=== PATIENT | female | born 1945 | race Two or more races ===

== ENCOUNTER 2024-09-17 08:43 | Inpatient (IN) | payer MEDICARE, MEDICAID ==
[2024-09-14 14:47] LABS: Basophils # (auto) 0.1 10 ^3/uL (0-0.2); Basophils % (auto) 1.1 % (0.0-2.0); Eosinophils # (auto) 0.1 10 ^3/uL (0-0.8); Eosinophils % (auto) 1.2 % (0.0-7.0); Hematocrit 38.8 % (36.0-46.0); Lymphocytes # (auto) 1.9 10 ^3/uL (0.4-5.4); Lymphocytes % (auto) 38.9 % (10.0-50.0); Mean Corpuscular Hemoglobin 29.2 pg (28.0-32.0); Mean Corpuscular Hgb Conc. 33.4 g/dL (32.0-36.0); Mean Corpuscular Volume 87.2 fL (80.0-100.0); Monocytes # (auto) 0.3 10 ^3/uL (0-1.3); Monocytes % (auto) 6.8 % (0.0-12.0); Neutrophils # (auto) 2.5 10 ^3/uL (1.6-8.6); Platelet Count (auto) 266 10^3/uL (140-450); Red Blood Cells 4.44 10^6/uL (4.0-5.20); Red Cell Distribution Width 13.9 % (11.8-14.3); White Blood Cell 4.9 10^3/uL (4.4-10.8)
[2024-09-14 15:09] LABS: Alkaline Phosphatase 53 U/L (46-116); Anion Gap 7 (5-15); BUN/Creatinine Ratio 9.4 (10.0-20.0); Bilirubin, Total 0.5 mg/dL (0.2-1.0); Carbon Dioxide 28 mmol/L (20-31); Chloride 105 mmol/L (98-107); Glucose 79 mg/dL (74-106); Potassium 3.8 mmol/L (3.5-5.1); Sodium 140 mmol/L (136-145)
[2024-09-14 15:11] LABS: Alanine Aminotransferase 9 U/L (7-40); Aspartate Aminotransferase 13 U/L (13-40); Blood Urea Nitrogen 9 mg/dL (9-23); Calcium 10.7 mg/dL (8.7-10.4)
[2024-09-14 15:16] LABS: INR 1.08 (0.9-1.15); Partial Thromboplastin Time 29.1 SEC (24.5-34.5); Prothrombin Time 11.4 sec (9.3-11.8)
[2024-09-15 12:04] LABS: Urine Bacteria None Seen /hpf (None Seen)
[2024-09-15 12:12] LABS: Urine Blood Negative /uL (Negative); Urine Clarity Clear (Clear); Urine Color Light-Yellow (Yellow); Urine Protein, UAD Negative (Negative); Urine Specific Gravity 1.009 (1.001-1.035); Urine Squamous Epithelial Cell FEW /hpf (<5); Urine Urobilinogen Normal (Negative); Urine WBC < 1 /HPF (0-5)
[2024-09-17] VITALS (8 sets, daily range): BP systolic 116–134; BP diastolic 56–73; PULSE 71–92; RESP 6–20; TEMP 97.3–97.9; O2SAT 92–100
[~2024-09-17] VITALS: Ht 162.6 cm; Wt 78.0 kg
[~2024-09-17 08:43] MED LIST: ALBUAER3 IN; AMLO1TAB23 PO; CHOL20004 PO; MIRA25TA OR
[2024-09-17] MEDS ORDERED: KETAMINE 50mg/ML 1ml syringe ONE (10:02)
[2024-09-17] MEDS ORDERED: KETOROLAC TROMETH 30 MG/ML 1ML VIAL ONE (10:03)
[2024-09-17] MEDS ORDERED: HYDROmorphone HCL 2 MG/ML VL/or syr ONE (10:03)
[2024-09-17] MEDS ORDERED: fentaNYL CITRATE 100 MCG/2 ML VL ONE (10:03)
[2024-09-17] MEDS ORDERED: GLYCOPYRROLATE 0.2 MG/ML 1ML VIAL ONE (10:03)
[2024-09-17] MEDS ORDERED: MIDAZOLAM HCL 2MG/2ML 2ml VIAL (1mg/ml) ONE (10:03)
[2024-09-17] MEDS ORDERED: LIDOCAINE HCL 100 MG/5ML (2%) SYRG INJ IV ONE (10:03)
[2024-09-17] MEDS ORDERED: PROPOFOL 10 MG/ML 20 ML IV ONE (10:03)
[2024-09-17] MEDS ORDERED: fentaNYL CITRATE 5 ML ONE (10:03)
[2024-09-17] MEDS ORDERED: ONDANSETRON HCL 4 MG/2 ML VIAL ONE (10:03)
[2024-09-17] MEDS ORDERED: ePHEDrine SULFATE 50 MG/ML AMP ONE (10:03)
--- NOTE | 2024-09-17 10:59 | DVHHP2 ---
Admitting Diagnosis: lumbar spinal stenosis with neurogenic claudication History of Present Illness Home Meds Reported Medications Cholecalciferol (D3) 50 Mcg Cap, PO DAILY, CAP 09/14/24 [employer] (MYRBETRIQ) 25 Mg Tab, 25 MG OR DAILY, TAB 09/14/24 Amlodipine Besylate (Amlodipine Besylate) 10 Mg Tab, PO DAILY, TAB 09/14/24 Albuterol Sulfate (VENTOLIN MDI) 90 Mcg Ih, 90 MCG IN, INH 09/14/24 Review of Systems Constitutional: No symptom reported Ears, Nose, & Throat: No symptom reported Eyes: No symptom reported Pulmonary/Respiratory: No symptom reported Cardiovascular: No symptom reported Gastrointestinal: No symptom reported Genitourinary: No symptom reported Musculoskeletal: Back pain Skin: No symptom reported Psychiatric: No symptom reported Endocrine: No symptom reported Hemotologic/Lymphatic: No symptom reported H&P Exam Vital Signs Vital Signs Date Time Temp Pulse Resp B/P (MAP) Pulse Ox O2 Delivery O2 Flow Rate FiO2 09/17/24 08:53 97.3 92 18 134/73 (93) 96 97.3 General Appeara: Well developed, Well nourished, Normal Appearance Head Exam: Normal inspection Neck Exam: Normal inspection, Non-tender, Normal alignment Eye Exam: bilateral eye Normal inspection, bilateral eye PERRL, bilateral eye EOMI Nasal Exam: Normal inspection Mouth: Normal Inspection Pulmonary/Respiratory: Normal inspection, Normal breath sounds, Chest non- tender, Lungs clear Cardiovascular/Chest: Normal inspection, Regular rate, Normal Rhythm Abdominal Exam: Normal bowel sounds, Soft, No tenderness, No hepatospenomegaly, No masses Rectal Exam: Deferred Back Exam: Muscle spasm, Vertebral tenderness Pelvic Exam: Not done Male Genital Exam: Not done Shoulder Exam: Normal inspection, Non-tender, Normal ROM Elbow/Forearm Exam: Normal inspection, Non-tender, Normal ROM Wrist Exam: Normal inspection, Non-tender, Normal ROM Hand Exam: Normal inspection, Non-tender, Normal ROM Hip exam: Normal inspection, Non-tender, Normal range of motion Legs: bilateral leg limited range of motion Knees: right knee soft tissue tenderness Ankle Exam: bilateral ankle Normal inspection, bilateral ankle Non-tender, bilateral ankle Normal range of motion, bilateral ankle No evidence of injury Foot: bilateral foot non-tender, bilateral foot normal inspection, bilateral foot normal range of motion, bilateral foot no evidence of injury Tendon/ Neuro: Motor deficit, Sensory deficit ONLINE ACTIVIST Exam: Normal hearing, Normal speech, PERRL Motor/Sensory: Weak motor strength RLE, Weak motor strength LLE Deep Tendon Ref: All intact Neuro/Mental St: Alert Appearance: Appropriate appearance Eye contact/ Speech: Cooperative, Good eye contact, Normal speech Thoughts/Psych: Normal thought pattern Coordination/Gait: Abnormal gait Skin Exam: Normal inspection, Normal color, Warm/dry Lymphatic: Normal inspection Labs/Xrays Labs Test 09/15/24 12:02 09/14/24 14:30 Range/Units Urine Color Light-yellow Yellow Urine Clarity Clear Clear Urine pH 6.0 5.0-9.0 Urine Specific [place] 1.009 1.001-1.035 Urine Protein Negative Negative Urine Ketones Negative Negative Urine Blood Negative Negative /uL Urine Nitrite Negative Negative Urine Bilirubin Negative Negative Urine Urobilinogen Normal Negative mg/dL Urine Leukocyte Esterase Negative Negative /uL Urine RBC 1 0 - 4 /hpf Urine Microscopic WBC < 1 0-5 /HPF Urine Squamous Epithelial Cells Few <5 /hpf Urine Bacteria None seen None Seen /hpf Urine Glucose Normal Normal mg/dL White Blood Count 4.9 4.4-10.8 10^3/uL Red Blood Count 4.44 4.0-5.20 10^6/uL Hemoglobin 13.0 12.2-16.2 g/dL Hematocrit 38.8 36.0-46.0 % Mean Corpuscular Volume 87.2 80.0-100.0 fL Mean Corpuscular Hemoglobin 29.2 28.0-32.0 pg Mean Corpuscular Hemoglobin Concent 33.4 32.0-36.0 g/dL Red Cell Distribution Width 13.9 11.8-14.3 % Platelet Count 266 140-450 10^3/uL Mean Platelet Volume 8.3 6.9-10.8 fL Neutrophils (%) (Auto) 52.0 37.0-80.0 % Lymphocytes (%) (Auto) 38.9 10.0-50.0 % Monocytes (%) (Auto) 6.8 0.0-12.0 % Eosinophils (%) (Auto) 1.2 0.0-7.0 % Basophils (%) (Auto) 1.1 0.0-2.0 % Neutrophils # (Auto) 2.5 1.6-8.6 10 ^3/uL Lymphocytes # (Auto) 1.9 0.4-5.4 10 ^3/uL Monocytes # (Auto) 0.3 0-1.3 10 ^3/uL Eosinophils # (Auto) 0.1 0-0.8 10 ^3/uL Basophils # (Auto) 0.1 0-0.2 10 ^3/uL Nucleated Red Blood Cells 0.0 % Prothrombin Time 11.4 9.3-11.8 sec Prothrombin Time INR 1.08 0.9-1.15 Activated Partial Thromboplast Time 29.1 24.5-34.5 SEC Sodium Level 140 136-145 mmol/L Potassium Level 3.8 3.5-5.1 mmol/L Chloride Level 105 98-107 mmol/L Carbon Dioxide Level 28 20-31 mmol/L Anion Gap 7 5-15 Blood Urea Nitrogen 9 9-23 mg/dL Creatinine 0.96 0.550-1.02 mg/dL Glomerular Filtration Rate Calc 60 >90 mL/min BUN/Creatinine Ratio 9.4 L 10.0-20.0 Serum Glucose 79 74-106 mg/dL Calcium Level 10.7 H 8.7-10.4 mg/dL Total Bilirubin 0.5 0.2-1.0 mg/dL Aspartate Amino Transferase (AST) 13 13-40 U/L Alanine Aminotransferase (ALT) 9 7-40 U/L Alkaline Phosphatase 53 46-116 U/L Total Protein 8.0 5.7-8.2 g/dL Albumin 5.0 H 3.2-4.8 g/dL Assessment/Plan Primary Diagnosis lumbar spinal stenosis with severe neurogenic claudication Plan admit for elective lumbar spine surgery Plan discussed with: Patient ROSALBA RIOS MD Sep 17, 2024 10:59
[2024-09-17] MEDS ORDERED: HYDROmorphone HCL 2 MG/ML VL/or syr IV PRN ×2 (12:00→15:00)
[2024-09-17] MEDS ORDERED: MORPHINE SULFATE INJ 2 MG/ml SYRG IV PRN ×2 (12:45)
[2024-09-17] MEDS ORDERED: ACETAMINOPHEN 325 MG TAB PO PRN (12:45)
[2024-09-17] MEDS ORDERED: ONDANSETRON HCL 4 MG/2 ML VIAL IV PRN (12:45)
[2024-09-17] MEDS ORDERED: NITROGLYCERIN 0.4 MG SL TAB SL PRN (12:45)
[2024-09-17] MEDS: CIPROFLOXACIN 400MG/200ML 200 ML IV ONE (12:52)
[2024-09-17] MEDS: ceFAZolin 2 GM/D5W100ml 100 ML IV ONE (12:52)
[2024-09-17] MEDS: TRANEXAMIC ACID 20 ML ONE (12:53)
[2024-09-17] MEDS: levoFLOXacin 500MG 200 ML IV ONE (12:53)
[2024-09-17] MEDS ORDERED: SUGAMMADEX 200mg/2ml Vial (100MG/ML) IV ONE (13:20)
[2024-09-17] MEDS ORDERED: HYDR-4798 (13:43)
[2024-09-17] MEDS ORDERED: BACL10TA PO (13:43)
[2024-09-17] MEDS ORDERED: ALBU108A5 INH (13:43)
[2024-09-17] MEDS ORDERED: ceFAZolin 1GM/50ML 50 ML IV SCH ×2 (14:00→22:00)
[2024-09-17] MEDS: THROMBIN (BOVINE) 5000 UNIT SOL VIAL ONE (14:10)
[2024-09-17] MEDS ORDERED: hydrALAZINE HCL 20 MG/ML VL IV PRN (15:00)
[2024-09-17] MEDS ORDERED: NALOXONE HCL 0.4 MG/ML VIAL IV PRN (15:00)
[2024-09-17] MEDS ORDERED: ePHEDrine SULFATE 50 MG/ML AMP IV PRN (15:00)
[2024-09-17] MEDS ORDERED: fentaNYL CITRATE 100 MCG/2 ML VL IV PRN (15:00)
--- NOTE | 2024-09-17 15:19 | DVH ---
XY C ARM FLUOROSCOPY UP TO 60MIN, HISTORY: L3-5 SPINAL DECOMPRESSION AND FUSION TECHNICAL DATA: 4 intraoperative fluoroscopic spot images were obtained . COMPARISON: None FINDINGS/IMPRESSION: C-arm fluoroscopic images were obtained for anatomic localization. The images are of low resolution b ut demonstrate instrumentation over the spine . Total fluoroscopy time was 51 seconds. 23 DAP Please see the operative report for further details.
[2024-09-17] MEDS: ONDANSETRON HCL 4 MG/2 ML VIAL IV ONE ×2 (16:14)
[2024-09-17] MEDS: FLUMAZENIL 0.1 MG/ML INJ 10ML MDV IV ONE (16:14)
[2024-09-17] MEDS: D5W/SOD CHLO 0.9% 1,000 ML IV SCH (16:30)
[2024-09-17] MEDS: CYCLOBENZAPRINE HCL 10 MG TAB PO SCH (17:38)
[2024-09-17] MEDS: ALBUTEROL SULF 2.5 MG/0.5ML(0.5%) NEB SOLN NEB SCH (18:40)
[2024-09-17] MEDS: ceFAZolin 1GM/50ML 50 ML IV SCH (21:48)
[2024-09-17] MEDS: DOCUSATE SOD 100 MG CAP PO SCH (21:48)
[2024-09-17] MEDS ORDERED: ALBUTEROL SULF HFA 90MCG INH 200DOSE IN SCH (22:00)
[2024-09-18] VITALS (13 sets, daily range): BP systolic 105–144; BP diastolic 47–66; PULSE 68–114; RESP 15–18; TEMP 97.4–98.2; O2SAT 93–100
[2024-09-18] MEDS: SODIUM CHLORIDE 0.9% 1,000 ML IV SCH (04:00)
[2024-09-18] MEDS: ceFAZolin 1GM/50ML 50 ML IV SCH (05:19)
--- NOTE | 2024-09-18 18:01 | DVHPN2 ---
Subjective I am assuming the care of the patient from today onwards. Patient is status post L3-4 L4-5 spine surgery. Patient is currently complaining of minimal pain in the lumbar area. Reviewed: Care Plan Changes from previous H/P or p: No Changes Objective Vitals Vital Signs Date Time Temp Pulse Resp B/P (MAP) Pulse Ox O2 Delivery O2 Flow Rate FiO2 09/18/24 16:15 97.5 106 16 140/63 (88) 94 97.5 09/18/24 09:34 Nasal Cannula 2.0 09/18/24 09:34 28 Intake/Output Intake and Output 09/18/24 07:00 Intake Total 870 ml Output Total 180 ml Balance 690 ml Intake Oral 440 ml IV Total 430 ml Output Drainage Total 180 ml # Voids 1 Exam HEENT pupils are reactive Neck is supple CV is S1-S2 regular rate and rhythm Respiratory diminished breath sounds bilateral lung bases GI positive bowel sound 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 Medications Current Medications Medications Dose Ordered Sig/Mindy Route Start Time Stop Time Status Last Admin Dose Admin Ondansetron HCl 4 mg Q4HP PRN IV 09/17/24 12:45 Acetaminophen 650 mg Q6HP PRN PO 09/17/24 12:45 Acetaminophen/ Hydrocodone Bitart 1 tab Q6HP PRN PO 09/17/24 12:45 Morphine Sulfate 2 mg Q4HP PRN IV 09/17/24 12:45 Cyclobenzaprine HCl 10 mg TID PO 09/17/24 14:00 09/18/24 13:12 10 MG Docusate Sodium 100 mg BID PO 09/17/24 22:00 09/18/24 09:16 100 MG Nitroglycerin 0.4 mg Q5MINP PRN SL 09/17/24 12:45 Morphine Sulfate 2 mg Q30M PRN IV 09/17/24 12:45 Albuterol 2.5 mg BID NEB 09/17/24 22:00 09/18/24 07:07 2.5 MG Cefazolin Sodium 50 ml @ 100 mls/hr Q8H IV 09/18/24 05:00 09/19/24 13:29 09/18/24 13:12 100 MLS/HR Sodium Chloride 1,000 ml @ 75 mls/hr [id number] IV 09/18/24 04:00 09/18/24 16:06 75 MLS/HR Laboratory Results Laboratory Tests 09/14/24 14:30 Urinalysis Test 09/15/24 12:02 Urine Color Light-yellow (Yellow) Urine Clarity Clear (Clear) Urine pH 6.0 (5.0-9.0) Urine Specific [place] 1.009 (1.001-1.035) Urine Protein Negative (Negative) Urine Ketones Negative (Negative) Urine Blood Negative /uL (Negative) Urine Nitrite Negative (Negative) Urine Bilirubin Negative (Negative) Urine Urobilinogen Normal mg/dL (Negative) Urine Leukocyte Esterase Negative /uL (Negative) Urine RBC 1 /hpf (0 - 4) Urine Microscopic WBC < 1 /HPF (0-5) Urine Squamous Epithelial Cells Few /hpf (<5) Urine Bacteria None seen /hpf (None Seen) Urine Glucose Normal mg/dL (Normal) Assessment/Plan Assessment/Plan 79-year-old female with a known history of COPD, hypertension, chronic low back pain who was brought in while spine surgery for elective procedure. 1. Hypertension controlled 2. COPD currently not in exacerbation 3. Lumbar radiculopathy status post L3-4/L4-5 spine surgery -pain meds as needed, DVT GI prophylaxis -physical therapy evaluation and treatment -resume home medications. Plan discussed with: Patient Date of Service: Sep 18, 2024 Billing Provider: TREVON HONG MD Common Visit Codes: [id number] INP/OBS CARE(MOD) TREVON HONG MD Sep 18, 2024 18:00
[2024-09-19] VITALS (13 sets, daily range): BP systolic 140–165; BP diastolic 68–85; PULSE 94–142; RESP 16–20; TEMP 98–98.5; O2SAT 91–100
[2024-09-19] MEDS ORDERED: cloNIDine HCL 0.1 MG TAB PO PRN (15:00)
--- NOTE | 2024-09-19 15:43 | DVHPN2 ---
Subjective Patient is status post L3-4 L4-5 spine surgery postop day one. Patient is currently complaining of minimal pain in the lumbar area. 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 Medications Current Medications Medications Dose Ordered Sig/Mindy Route Start Time Stop Time Status Last Admin Dose Admin Ondansetron HCl 4 mg Q4HP PRN IV 09/17/24 12:45 Acetaminophen 650 mg Q6HP PRN PO 09/17/24 12:45 Acetaminophen/ Hydrocodone Bitart 1 tab Q6HP PRN PO 09/17/24 12:45 Morphine Sulfate 2 mg Q4HP PRN IV 09/17/24 12:45 Cyclobenzaprine HCl 10 mg TID PO 09/17/24 14:00 09/19/24 13:01 10 MG Docusate Sodium 100 mg BID PO 09/17/24 22:00 09/18/24 21:11 100 MG Nitroglycerin 0.4 mg Q5MINP PRN SL 09/17/24 12:45 Morphine Sulfate 2 mg Q30M PRN IV 09/17/24 12:45 Albuterol 2.5 mg BID NEB 09/17/24 22:00 09/19/24 11:13 2.5 MG Sodium Chloride 1,000 ml @ 75 mls/hr [id number] IV 09/18/24 04:00 09/18/24 16:06 75 MLS/HR Clonidine HCl 0.1 mg Q6HP PRN PO 09/19/24 15:00 Laboratory Results Laboratory Tests 09/14/24 14:30 Urinalysis Test 09/15/24 12:02 Urine Color Light-yellow (Yellow) Urine Clarity Clear (Clear) Urine pH 6.0 (5.0-9.0) Urine Specific [place] 1.009 (1.001-1.035) Urine Protein Negative (Negative) Urine Ketones Negative (Negative) Urine Blood Negative /uL (Negative) Urine Nitrite Negative (Negative) Urine Bilirubin Negative (Negative) Urine Urobilinogen Normal mg/dL (Negative) Urine Leukocyte Esterase Negative /uL (Negative) Urine RBC 1 /hpf (0 - 4) Urine Microscopic WBC < 1 /HPF (0-5) Urine Squamous Epithelial Cells Few /hpf (<5) Urine Bacteria None seen /hpf (None Seen) Urine Glucose Normal mg/dL (Normal) Assessment/Plan Assessment/Plan 79-year-old female with a known history of COPD, hypertension, chronic low back pain who was brought in while spine surgery for elective procedure. 1. Hypertension controlled 2. COPD currently not in exacerbation 3. Lumbar radiculopathy status post L3-4/L4-5 spine surgery -pain meds as needed, DVT GI prophylaxis -physical therapy evaluation and treatment -discharge plan per orthopedic spine surgery. Plan discussed with: Patient My Orders Orders - TREVON HONG MD Procedure Category Date Status Time * Customer Support Specialist CONS 09/18/24 Transmitted Consult 17:59 Regular Diet DIET 09/19/24 Transmitted Lunch Clonidine Hcl Tablet PHA 09/19/24 In Process (Catapres Tablet) 15:00 Date of Service: Sep 19, 2024 Billing Provider: TREVON HONG MD Common Visit Codes: [id number] INP/OBS CARE(MOD) TREVON HONG MD Sep 19, 2024 15:42
[2024-09-19] MEDS: HYDROcodone-ACET 10/325MG TAB PO PRN (20:18)
[2024-09-20] VITALS (14 sets, daily range): BP systolic 108–122; BP diastolic 65–72; PULSE 61–110; RESP 14–20; TEMP 97.2–98.2; O2SAT 93–100
[2024-09-20] MEDS ORDERED: SODI650T PO (14:56)
[2024-09-20] MEDS ORDERED: HYDR-4902 PO (14:56)
--- NOTE | 2024-09-20 15:36 | DVHPN2 ---
Subjective Patient is status post L3-4 L4-5 spine surgery postop day one. Patient is currently complaining of minimal pain in the lumbar area. Patient is sitting in the chair comfortably still has Hemovacs. Reviewed: Care Plan Changes from previous H/P or p: No Changes Objective Vitals Vital Signs Date Time Temp Pulse Resp B/P (MAP) Pulse Ox O2 Delivery O2 Flow Rate FiO2 09/20/24 15:00 102 18 110/69 96 2.0 28 09/20/24 13:00 97.2 97.2 09/20/24 09:38 Nasal Cannula Intake/Output Intake and Output 09/20/24 07:00 Intake Total 878 ml Output Total 110 ml Balance 768 ml Intake Oral 878 ml Output Drainage Total 110 ml # Voids 1 # Bowel Movements 3 Exam HEENT pupils are reactive Neck is supple CV is S1-S2 regular rate and rhythm Respiratory diminished breath sounds bilateral lung bases GI positive bowel sound Extremity 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 Medications Current Medications Medications Dose Ordered Sig/Mindy Route Start Time Stop Time Status Last Admin Dose Admin Ondansetron HCl 4 mg Q4HP PRN IV 09/17/24 12:45 Acetaminophen 650 mg Q6HP PRN PO 09/17/24 12:45 Acetaminophen/ Hydrocodone Bitart 1 tab Q6HP PRN PO 09/17/24 12:45 09/20/24 10:01 1 TAB Morphine Sulfate 2 mg Q4HP PRN IV 09/17/24 12:45 Cyclobenzaprine HCl 10 mg TID PO 09/17/24 14:00 09/20/24 13:41 10 MG Docusate Sodium 100 mg BID PO 09/17/24 22:00 09/20/24 10:01 100 MG Nitroglycerin 0.4 mg Q5MINP PRN SL 09/17/24 12:45 Morphine Sulfate 2 mg Q30M PRN IV 09/17/24 12:45 Albuterol 2.5 mg BID NEB 09/17/24 22:00 09/20/24 09:38 2.5 MG Clonidine HCl 0.1 mg Q6HP PRN PO 09/19/24 15:00 Laboratory Results Laboratory Tests 09/14/24 14:30 Urinalysis Test 09/15/24 12:02 Urine Color Light-yellow (Yellow) Urine Clarity Clear (Clear) Urine pH 6.0 (5.0-9.0) Urine Specific [place] 1.009 (1.001-1.035) Urine Protein Negative (Negative) Urine Ketones Negative (Negative) Urine Blood Negative /uL (Negative) Urine Nitrite Negative (Negative) Urine Bilirubin Negative (Negative) Urine Urobilinogen Normal mg/dL (Negative) Urine Leukocyte Esterase Negative /uL (Negative) Urine RBC 1 /hpf (0 - 4) Urine Microscopic WBC < 1 /HPF (0-5) Urine Squamous Epithelial Cells Few /hpf (<5) Urine Bacteria None seen /hpf (None Seen) Urine Glucose Normal mg/dL (Normal) Assessment/Plan Assessment/Plan 79-year-old female with a known history of COPD, hypertension, chronic low back pain who was brought in while spine surgery for elective procedure. 1. Hypertension controlled 2. COPD currently not in exacerbation 3. Lumbar radiculopathy status post L3-4/L4-5 spine surgery -pain meds as needed, DVT GI prophylaxis -physical therapy evaluation and treatment -discharge plan per orthopedic spine surgery. Plan discussed with: Patient, Other My Orders Orders - TREVON HONG MD Procedure Category Date Status Time Notify Provider NOTICE 09/20/24 Transmitted Malnutrition 15:24 Nutritional NOURISH 09/20/24 Transmitted Supplements 15:24 Dietary NOTICE 09/20/24 Transmitted Recommendations 15:24 Date of Service: Sep 20, 2024 Billing Provider: TREVON HONG MD Common Visit Codes: [id number] INP/OBS CARE(MOD) TREVON HONG MD Sep 20, 2024 15:36
[2024-09-21] VITALS (14 sets, daily range): BP systolic 97–169; BP diastolic 57–85; PULSE 98–116; RESP 17–22; TEMP 97.4–98; O2SAT 91–100
--- NOTE | 2024-09-21 09:56 | DVHPN2 ---
Subjective The patient is seen and examined at bedside. No complaint today except being tired. Reviewed: Care Plan Changes from previous H/P or p: No Changes Objective Vitals Vital Signs Date Time Temp Pulse Resp B/P (MAP) Pulse Ox O2 Delivery O2 Flow Rate FiO2 09/21/24 08:39 97.5 99 18 118/72 (87) 93 97.5 09/20/24 23:04 Nasal Cannula* 3 32 Intake/Output Intake and Output 09/21/24 07:00 Intake Total 1176 ml Output Total 60 ml Balance 1116 ml Intake Oral 1176 ml Output Gastric Drainage Total 60 ml # Voids 4 General Appearance: Alert, Oriented X3, Cooperative, No acute distress HEENT: Atraumatic, PERRLA, EOMI Neck: Supple Lungs: Clear to auscultation, Normal air movement Cardiovascular: Regular rate, Normal S1, Normal S2, No murmurs, Gallops, Rubs Abdomen: Normal bowel sounds, Soft, No tenderness Neuro: Cranial nerves 3-12 NL Psych/Mental Status: Mental status NL Medications Current Medications Medications Dose Ordered Sig/Mindy Route Start Time Stop Time Status Last Admin Dose Admin Ondansetron HCl 4 mg Q4HP PRN IV 09/17/24 12:45 Acetaminophen 650 mg Q6HP PRN PO 09/17/24 12:45 Acetaminophen/ Hydrocodone Bitart 1 tab Q6HP PRN PO 09/17/24 12:45 09/20/24 10:01 1 TAB Morphine Sulfate 2 mg Q4HP PRN IV 09/17/24 12:45 Cyclobenzaprine HCl 10 mg TID PO 09/17/24 14:00 09/21/24 05:47 10 MG Docusate Sodium 100 mg BID PO 09/17/24 22:00 09/21/24 09:13 100 MG Nitroglycerin 0.4 mg Q5MINP PRN SL 09/17/24 12:45 Morphine Sulfate 2 mg Q30M PRN IV 09/17/24 12:45 Albuterol 2.5 mg BID NEB 09/17/24 22:00 09/21/24 08:50 2.5 MG Clonidine HCl 0.1 mg Q6HP PRN PO 09/19/24 15:00 Laboratory Results Laboratory Tests 09/14/24 14:30 Urinalysis Test 09/15/24 12:02 Urine Color Light-yellow (Yellow) Urine Clarity Clear (Clear) Urine pH 6.0 (5.0-9.0) Urine Specific [place] 1.009 (1.001-1.035) Urine Protein Negative (Negative) Urine Ketones Negative (Negative) Urine Blood Negative /uL (Negative) Urine Nitrite Negative (Negative) Urine Bilirubin Negative (Negative) Urine Urobilinogen Normal mg/dL (Negative) Urine Leukocyte Esterase Negative /uL (Negative) Urine RBC 1 /hpf (0 - 4) Urine Microscopic WBC < 1 /HPF (0-5) Urine Squamous Epithelial Cells Few /hpf (<5) Urine Bacteria None seen /hpf (None Seen) Urine Glucose Normal mg/dL (Normal) Labs and/or images reviewed: Labs reviewed by me Assessment/Plan Assessment/Plan 79-year-old female with a known history of COPD, hypertension, chronic low back pain who was brought in while spine surgery for elective procedure. 1. Hypertension controlled 2. COPD currently not in exacerbation 3. Lumbar radiculopathy status post L3-4/L4-5 spine surgery -pain meds as needed, DVT GI prophylaxis -physical therapy evaluation and treatment -discharge plan per orthopedic spine surgery. This medical document was created using an electronic medical record system with [employer] direct computerized dictation system. Although this document has been carefully reviewed, there may still be some phonetic and typographical errors. These areas are purely typographical due to imperfections of the software programs, and do not reflect any compromise in the patient's medical care. Plan discussed with: Patient Date of Service: Sep 21, 2024 Billing Provider: JENY RODRIGUEZ MD Common Visit Codes: [id number] INP/OBS CARE(HIGH) JENY RODRIGUEZ MD Sep 21, 2024 09:56
[2024-09-22] VITALS (13 sets, daily range): BP systolic 104–150; BP diastolic 62–80; PULSE 78–112; RESP 16–20; TEMP 97.5–98.2; O2SAT 90–99
--- NOTE | 2024-09-22 08:23 | DVHOP2 ---
Operative Report - 2 Report Details Date: 09/22/24 Preop Diagnosis: lumbar spinal stenosis with severe neurogenic claudication and progressive neuro deficit Postop Diagnosis: same as pre op Surgeon: Des Oliva MD Print Inspector: Angi Matthews NP Anesthesiologist: cristine Anesthesia: General Consent: The patient was informed of the risks and benefits of the procedure. These include but are not limited to complications of anesthesia, postoperative infection, incomplete relief of symptoms, recurrence of symptoms, damage to blood vessels, nerves and tendons, deep venous thrombosis, pulmonary embolism and possible need for repeat surgery in the future. Name of Procedure Performed see detailed note Procedure Details Procedure Details: Pre-op Diagnosis: Lumbar Degenerative Disk Disease and Lumbar Spinal Stenosis causing Incapacitating back pain, radiculopathy and progressive neurologic deficit Post-op Diagnosis: Lumbar Degenerative Disk Disease and Lumbar Spinal Stenosis causing Incapacitating back pain, radiculopathy and progressive neurologic deficit Procedure: Lumbar 5 laminectomy with Lumbar 5 foraminotomies and facetectomies to decompress central canal and Lumbar 5 nerve roots Lumbar 4 laminectomy with Lumbar 4 foraminotomies and facetectomies to decompress central canal and Lumbar 4 nerve roots Lumbar 3 laminectomy with Lumbar 3 foraminotomies and facetectomies to decom press central canal and Lumbar 4 nerve roots Lumbar 3 to 5 posterior spinal inter transverse fusion with bone graft Lumbar 3 to 5 posterior spinal instrumentation with pedicle screws Local Bone Autograft For Fusion Allograft Bone to augment Fusion Use of Demineralized Bone Matrix to Augment Fusion Microscope For Microdissection Surgeon: Des Oliva MD Assist: AZAM Elkins Anesthesia: General Fluids and EBL: See anesthesia note Patient was seen in the Pre Anesthesia Care Unit (PACU) and the operative site was initialed by me. All questions were answered to the patients satisfaction and chart reviewed. The patient was taken to the operative room where pre- operative antibiotics were given 30 minutes prior to incision. General anesthesia was induced and neuro-monitoring leads placed. Rosario catheter was placed. The patient was turned prone onto the [facility] spinal table. While positioning, I made sure that the belly was free to allow proper expansion of the lungs. The hips were extended and all bony prominences padded. The shoulders were abducted 80 degree and the elbows flexed 100 degrees with no tension on the brachial plexus. I check the foot arterial pulses and they were palpable. The patient was prepped and draped and time out was taken at this time per usual protocol. At this time, the C-arm fluoroscope was brought in and was used to crissy the incision borders proximally and distally. Using a Number 10 Blade, an incision was made extending it proximally and distally per C arm crissy from the posterior spinous process of lumbar 4,5 down to the lumbo-dorsal fascia. All bleeding was controlled with electrocautery. Self-retaining retractors were placed. Electrocautery was then used to take down the lumbo-dorsal fascia, to free the muscle off the bone bilaterally. A Derian retractor was placed over the posterior spinous process proximally and a lateral C-arm fluoroscope image was taken to insure we were at the correct level. Next, using bovie electro cautery, The deep fascia laterally to the facet joints was removed to expose the transverse processes of lumbar 3, 4 and 5 while taking care to avoid injuring the facet capsule at the proximal end of the incision. Next, the microscope was bought in for visualization and using a Luxell rongeur, the posterior spinous process of lumbar 3 and 4 and 5 bone were removed and the bone was saved for use as local autograft. I used alternating Kerison 2 mm and 3 mm rongeurs to perform central laminectomies lumbar 5 and 4 and 3 to decompress the central canal. Next using alternating Kerison 2mm and 3 mm rongeurs, the superior articular facets of lumbar 3, 4 and 5 were removed bilaterally to decompress the lateral recess (facetectomies) and then extended proximally to decompress the foramen bilaterally (foraminotomies). I used a ball tipped nerve probed to insure that the respective nerve roots were able to be mobilized 5mm in each direction were unimpeded in the lateral recess and foramen. Next I carefully inspected the dura to make sure no durotomy was visible and it was not. I covered the exposed dura with gelfoam soaked in thrombin and the microscope was wheeled away from the operative filed. The C-arm fluoroscope was brought in and perfect AP views of the lumbar 4 and 5 pedicles were obtained. I placed bilateral pedicle screws at these levels by: using a Lenke awl to make a oversize load pilot escort hole, then a ball tip robe to make sure there was no pedicle breach, then a tap to prepare the track and a 6.5 mm diameter 45 mm length pedicle screw was placed bilaterally. This step to place bilateral pedicle screws was repeated up to the lumbar 3, 4 and 5 level. Next, the c-arm fluoroscope took an AP and lateral x-ray to ensure proper placement of the pedicle screws. Next, the neuro-stimulation probe was placed over the tip of each screw and each screw stimulated only after a current greater than 10 mA was delivered to the screw. Next , I took a Midas Duncan Drill to decorticate the transverse process which were exposed and local bone graft, Bacterin allograft bone substitute and Demineralized bone matrix were placed along the inter transverse process intervals bilaterally (the fusion bed). Next a curved chris sized to fit the pedicle screw interval was placed and secured to each pedicle screw using set screws, The set screws were tightened using a torque screwdriver (set to 10 N*M torque) to secure the chris to the pedicle screws bilaterally. Final AP and lateral C arm fluoroscopic films were taken at this time. Next a 10 [place] diameter Hemovac drain was laced deep to the lumbo- dorsal fascia. The lumbo-dorsal fascia was closed with interrupted 0-Vicryl sutures. The subcutaneous tissue was closed with interrupted 2-0 Vicryl sutures. The skin was closed with running 2-0 nylon suture. Sterile dressings were place. The pt. was turned supine onto the stretcher, extubated and taken to the recovery room in stable condition. Condition Stable Disposition Still a Patient DES OLIVA MD Sep 22, 2024 08:23
--- NOTE | 2024-09-22 10:59 | DVHPN2 ---
Subjective The patient is seen and examined at bedside. No complaint today except being tired. Reviewed: Care Plan Changes from previous H/P or p: No Changes Objective Vitals Vital Signs Date Time Temp Pulse Resp B/P (MAP) Pulse Ox O2 Delivery O2 Flow Rate FiO2 09/22/24 09:00 97.9 97 16 150/80 (103) 96 97.9 09/22/24 06:25 Nasal Cannula* 3 32 Intake/Output Intake and Output 09/22/24 07:00 Intake Total 1584 ml Output Total 1080 ml Balance 504 ml Intake Oral 1584 ml Output Urine Total 1000 ml Drainage Total 80 ml # Voids 5 General Appearance: Alert, Oriented X3, Cooperative, No acute distress HEENT: Atraumatic, PERRLA, EOMI Neck: Supple Lungs: Clear to auscultation, Normal air movement Cardiovascular: Regular rate, Normal S1, Normal S2, No murmurs, Gallops, Rubs Abdomen: Normal bowel sounds, Soft, No tenderness Neuro: Cranial nerves 3-12 NL Psych/Mental Status: Mental status NL Medications Current Medications Medications Dose Ordered Sig/Mindy Route Start Time Stop Time Status Last Admin Dose Admin Ondansetron HCl 4 mg Q4HP PRN IV 09/17/24 12:45 Acetaminophen 650 mg Q6HP PRN PO 09/17/24 12:45 Acetaminophen/ Hydrocodone Bitart 1 tab Q6HP PRN PO 09/17/24 12:45 09/22/24 06:45 1 TAB Morphine Sulfate 2 mg Q4HP PRN IV 09/17/24 12:45 Cyclobenzaprine HCl 10 mg TID PO 09/17/24 14:00 09/22/24 05:51 10 MG Docusate Sodium 100 mg BID PO 09/17/24 22:00 09/22/24 10:38 100 MG Nitroglycerin 0.4 mg Q5MINP PRN SL 09/17/24 12:45 Morphine Sulfate 2 mg Q30M PRN IV 09/17/24 12:45 Albuterol 2.5 mg BID NEB 09/17/24 22:00 09/22/24 06:25 2.5 MG Clonidine HCl 0.1 mg Q6HP PRN PO 09/19/24 15:00 Laboratory Results Laboratory Tests 09/14/24 14:30 Urinalysis Test 09/15/24 12:02 Urine Color Light-yellow (Yellow) Urine Clarity Clear (Clear) Urine pH 6.0 (5.0-9.0) Urine Specific [place] 1.009 (1.001-1.035) Urine Protein Negative (Negative) Urine Ketones Negative (Negative) Urine Blood Negative /uL (Negative) Urine Nitrite Negative (Negative) Urine Bilirubin Negative (Negative) Urine Urobilinogen Normal mg/dL (Negative) Urine Leukocyte Esterase Negative /uL (Negative) Urine RBC 1 /hpf (0 - 4) Urine Microscopic WBC < 1 /HPF (0-5) Urine Squamous Epithelial Cells Few /hpf (<5) Urine Bacteria None seen /hpf (None Seen) Urine Glucose Normal mg/dL (Normal) Labs and/or images reviewed: Labs reviewed by me Assessment/Plan Assessment/Plan 79-year-old female with a known history of COPD, hypertension, chronic low back pain who was brought in while spine surgery for elective procedure. 1. Hypertension controlled 2. COPD currently not in exacerbation 3. Lumbar radiculopathy status post L3-4/L4-5 spine surgery -pain meds as needed, DVT GI prophylaxis -physical therapy evaluation and treatment -discharge plan per orthopedic spine surgery. -Patient desat when off 3L of oxygen to 70%, will try to wean patient. If continue to have problem, anticipate ABG in room air and home oxygen. This medical document was created using an electronic medical record system with M*M [employer]rency direct computerized dictation system. Although this document has been carefully reviewed, there may still be some phonetic and typographical errors. These areas are purely typographical due to imperfections of the software programs, and do not reflect any compromise in the patient's medical care. Plan discussed with: Patient Date of Service: Sep 22, 2024 Billing Provider: JENY RODRIGUEZ MD Common Visit Codes: [id number] INP/OBS CARE(HIGH) JENY RODRIGUEZ MD Sep 22, 2024 10:59
--- NOTE | 2024-09-22 11:36 | DVHPN2 ---
Progress Note - Surgical Date Seen: Sep 22, 2024 Post op day Post op day: 5 Subjective Patient reports: No new complaints, Feels better Review of Systems: HEENT:Normal, CVS:Normal, RESPIRATORY:Normal, GI:Normal, :Normal, MSK:Normal, NEURO:Normal Objective Vital signs Vital Sign Date Time Temp Pulse Resp B/P (MAP) Pulse Ox O2 Delivery O2 Flow Rate FiO2 09/22/24 10:00 96 Nasal Cannula* 3 32 09/22/24 09:00 97.9 97 16 150/80 (103) 97.9 Total Intake and Output 09/21/24 09/21/24 09/22/24 15:00 23:00 07:00 Intake Total 1184 ml 400 ml Output Total 1080 ml Balance 104 ml 400 ml Medications Current Medications Medications Dose Ordered Sig/Mindy Route Start Time Stop Time Status Last Admin Dose Admin Ondansetron HCl 4 mg Q4HP PRN IV 09/17/24 12:45 Acetaminophen 650 mg Q6HP PRN PO 09/17/24 12:45 Acetaminophen/ Hydrocodone Bitart 1 tab Q6HP PRN PO 09/17/24 12:45 09/22/24 06:45 1 TAB Morphine Sulfate 2 mg Q4HP PRN IV 09/17/24 12:45 Cyclobenzaprine HCl 10 mg TID PO 09/17/24 14:00 09/22/24 05:51 10 MG Docusate Sodium 100 mg BID PO 09/17/24 22:00 09/22/24 10:38 100 MG Nitroglycerin 0.4 mg Q5MINP PRN SL 09/17/24 12:45 Morphine Sulfate 2 mg Q30M PRN IV 09/17/24 12:45 Albuterol 2.5 mg BID NEB 09/17/24 22:00 09/22/24 06:25 2.5 MG Clonidine HCl 0.1 mg Q6HP PRN PO 09/19/24 15:00 Laboratory Laboratory Tests 09/14/24 14:30 Test 09/14/24 14:30 Range/Units Serum Glucose 79 74-106 mg/dL Examination: GENERAL:Normal, HEENT:Normal, NECK:Normal, LUNGS:Normal (Patient is using oxygen supplementally), CVS:Normal, ABDOMEN:Normal (Tolerating diet), MSK:Normal (Initial concern the patient was not moving her right leg however on exam today patient was able to complete all requested tasks with her right leg, patient is have some achiness to the hip and thigh which is normal postoperative finding), SKIN:Normal (Sherri dressing in place drains placed x2, both drains were removed today without event), NEURO:Normal (Improvement noted and reported and preoperative symptoms), :Normal Problem List/Assessment/Plan Problems: (1) Postoperative pain after spinal surgery (2) Muscle spasm of back Assessment and Plan -Follow up appointment: with Dr Oliva scheduled prior to surgery [id number] [facility] [address] [place] [address] -Pain: - IV pain meds post op day 1, with PO supplementation, goal is to progress weaning off IV medications and control pain with PO only. morphine (PAIN 7-10) - P.O. analgesics:Tylenol 650MG (PAIN 1-3) Evans (PAIN 4-6) - Muscle relaxers scheduled administration. This is a beneficial medications for the incisional pain as it is mostly related to muscle spasms. Flexeril 10 mg TID - Cepacol throat lozenges as needed for sore throat -Antibiotics Operative recommendations: -Postoperative dose:-Post operative antibiotics cefazolin 1 g IV piggyback every 8 hours x 48 hours total of 6 doses -DVT PPX: -Hold all chemical DVT/ blood thinners for 14 days postoperatively -use mechanical DVT PPX such as SCD's, ambulation -Activity: -Pending PT evaluation and patients progression -Sit at side of bed for meals -Goal: Ambulate independently and safely (may use assistive devices if needed) -Medical Therapy goals: -Afebrile- Patient may develop a expected post operative fever by day 2-3, this may not be accompanied with a elevation in WBC. if fever develops: Acetaminophen for fever. Albuterol nebulizer Tx every 12 hours for 24 hours to facilitate adequate lung expansion and prevent development of atelectasis. -Euglycemic: bloods sugars under 130mmol/L for optimal healing -Normotensive: Avoid events of hypertension. This helps to keep post operative healing intact and avoids destabilization of beneficial hemostatic coagulation. -Lumbar: -If patient is comfortable encouraged the patient to lay on their side to facilitate wound healing -Dressings Take care not to disrupt the SHERRI dressing seal. If there is a break in the seal it can be trouble shot with a Tegaderm dressing. -Dressing to Hemovac drains may be changed once the drains have been removed by the provider. -Bowel management: -Colace 100mg bid -Diet: -Clear liquid diet and advance as patient tolerates within dietary limitations ( example: diabetic, Cardiac) -Incentive Spirometer: -10 x hour while awake, RN please educate and observe repeat demonstration, have IS at bedside POD #1 -X-rays: - none indicated at this time -Consults: -Physical Therapy evaluation, treatment recommendations, and discharge recommendations Call with questions Brittnee Matthews ACNP- Orthopaedic Spine Surgery nurse practitioner For Dr Cami Oliva Patient was examined, chart reviewed, labs evaluated, and diagnostic studies and findings analyzed. Case was discussed with Dr. Des Oliva who formulated the plan of care. This medical document was created using an electronic medical record system with [email or web address] dictation system. Although this document has been carefully reviewed, there might still be some phonetic and typographical errors. These areas are purely typographical due to imperfections of the software programs, and do not reflect any compromise in the patient's medical care. Plan discussed with Plan discussed with: Patient, Other (Dr. Yudelka Maurer) Visit Coding Surgery Date of Service if different f: Sep 17, 2024 Billing Provider: TREE MATTHEWS NP Surgery Visit Codes: NOT BILLABLE TREE MATTHEWS NP Sep 22, 2024 11:36
[2024-09-23] VITALS (13 sets, daily range): BP systolic 97–132; BP diastolic 57–88; PULSE 91–111; RESP 16–18; TEMP 97.5–99; O2SAT 90–99
[2024-09-23] MEDS ORDERED: CYCL-611 PO (10:57)
[2024-09-23] MEDS ORDERED: HYDR-4798 PO (10:57)
[2024-09-23] MEDS ORDERED: DOCU-265 PO (10:57)
--- NOTE | 2024-09-23 11:47 | DVHPN2 ---
Subjective The patient is seen and examined at bedside. No complaint today except being tired. Reviewed: Care Plan Changes from previous H/P or p: No Changes Objective Vitals Vital Signs Date Time Temp Pulse Resp B/P (MAP) Pulse Ox O2 Delivery O2 Flow Rate FiO2 09/23/24 09:27 112/63 (79) 09/23/24 08:30 98.1 111 18 97 98.1 09/23/24 06:31 Nasal Cannula 3.0 09/23/24 06:31 32 Intake/Output Intake and Output 09/23/24 07:00 Intake Total 1370 ml Output Total 300 ml Balance 1070 ml Intake Oral 1370 ml Output Urine Total 300 ml Gastric Drainage Total 0 ml Drainage Total 0 ml # Voids 4 General Appearance: Alert, Oriented X3, Cooperative, No acute distress HEENT: Atraumatic, PERRLA, EOMI Neck: Supple Lungs: Clear to auscultation, Normal air movement Cardiovascular: Regular rate, Normal S1, Normal S2, No murmurs, Gallops, Rubs Abdomen: Normal bowel sounds, Soft, No tenderness Neuro: Cranial nerves 3-12 NL Psych/Mental Status: Mental status NL Medications Current Medications Medications Dose Ordered Sig/Mindy Route Start Time Stop Time Status Last Admin Dose Admin Ondansetron HCl 4 mg Q4HP PRN IV 09/17/24 12:45 Acetaminophen 650 mg Q6HP PRN PO 09/17/24 12:45 Acetaminophen/ Hydrocodone Bitart 1 tab Q6HP PRN PO 09/17/24 12:45 09/23/24 09:27 1 TAB Morphine Sulfate 2 mg Q4HP PRN IV 09/17/24 12:45 Cyclobenzaprine HCl 10 mg TID PO 09/17/24 14:00 09/23/24 05:22 10 MG Docusate Sodium 100 mg BID PO 09/17/24 22:00 09/23/24 09:26 100 MG Nitroglycerin 0.4 mg Q5MINP PRN SL 09/17/24 12:45 Morphine Sulfate 2 mg Q30M PRN IV 09/17/24 12:45 Albuterol 2.5 mg BID NEB 09/17/24 22:00 09/23/24 06:31 2.5 MG Clonidine HCl 0.1 mg Q6HP PRN PO 09/19/24 15:00 Laboratory Results Laboratory Tests 09/14/24 14:30 Urinalysis Test 09/15/24 12:02 Urine Color Light-yellow (Yellow) Urine Clarity Clear (Clear) Urine pH 6.0 (5.0-9.0) Urine Specific [place] 1.009 (1.001-1.035) Urine Protein Negative (Negative) Urine Ketones Negative (Negative) Urine Blood Negative /uL (Negative) Urine Nitrite Negative (Negative) Urine Bilirubin Negative (Negative) Urine Urobilinogen Normal mg/dL (Negative) Urine Leukocyte Esterase Negative /uL (Negative) Urine RBC 1 /hpf (0 - 4) Urine Microscopic WBC < 1 /HPF (0-5) Urine Squamous Epithelial Cells Few /hpf (<5) Urine Bacteria None seen /hpf (None Seen) Urine Glucose Normal mg/dL (Normal) Labs and/or images reviewed: Labs reviewed by me Assessment/Plan Assessment/Plan 79-year-old female with a known history of COPD, hypertension, chronic low back pain who was brought in while spine surgery for elective procedure. 1. Hypertension controlled 2. COPD currently not in exacerbation 3. Lumbar radiculopathy status post L3-4/L4-5 spine surgery -pain meds as needed, DVT GI prophylaxis -physical therapy evaluation and treatment -discharge plan per orthopedic spine surgery. -Patient desat when off 3L of oxygen to 70%, unable to wean the patient off oxygen. I am going to request an ABG in room air. If patient qualifies which is SO2 less than 88 and pO2 less than 55, and we will arrange home oxygen 3 L of oxygen nasal cannula continuously.. This medical document was created using an electronic medical record system with [employer] direct computerized dictation system. Although this document has been carefully reviewed, there may still be some phonetic and typographical errors. These areas are purely typographical due to imperfections of the software programs, and do not reflect any compromise in the patient's medical care. Plan discussed with: Patient My Orders Orders - JENY RODRIGUEZ MD Procedure Category Date Status Time Abg W/ Co-Ox RT 09/23/24 Logged 11:43 * Fringe Weaver CONS 09/23/24 Verified Consult Date of Service: Sep 23, 2024 Billing Provider: JENY RODRIGUEZ MD Common Visit Codes: [id number] INP/OBS CARE(HIGH) JENY RODRIGUEZ MD Sep 23, 2024 11:47
--- NOTE | 2024-09-23 11:54 | DVHPN2 ---
Subjective Date Seen: Sep 23, 2024 Post op day Post op day: 6 Patient reports: No new complaints, Feels better, Other (Patient is progressing to discharge, most likely we will need intermediate facility for reconditioning, strengthening, posture.) Nursing reports: No new complaints, No abdominal pain, No chest pain, No dizziness, No cough General: Normal HNT: Normal Cardiovascular: Normal Respiratory: Normal Gastrointestinal: Normal Genitourinary: Normal Musculoskeletal: Normal, Other (Patient needs to work with physical therapy more to determine safe discharge destination) Neurological: Normal, Weakness (Patient experiencing postoperative sleepiness in a little fatigue due to deconditioning. Encouraged patient to sit up in a chair, sit at site of bed for meals) Objective Vitals Vital Sign Date Time Temp Pulse Resp B/P (MAP) Pulse Ox O2 Delivery O2 Flow Rate FiO2 09/23/24 09:27 112/63 (79) 09/23/24 08:30 98.1 111 18 97 98.1 09/23/24 06:31 Nasal Cannula 3.0 09/23/24 06:31 32 Total Intake and Output 09/22/24 09/22/24 09/23/24 15:00 23:00 07:00 Intake Total 240 ml 940 ml 190 ml Output Total 0 ml 300 ml Balance 240 ml 640 ml 190 ml Medications Current Medications Medications Dose Ordered Sig/Mindy Route Start Time Stop Time Status Last Admin Dose Admin Ondansetron HCl 4 mg Q4HP PRN IV 09/17/24 12:45 Acetaminophen 650 mg Q6HP PRN PO 09/17/24 12:45 Acetaminophen/ Hydrocodone Bitart 1 tab Q6HP PRN PO 09/17/24 12:45 09/23/24 09:27 1 TAB Morphine Sulfate 2 mg Q4HP PRN IV 09/17/24 12:45 Cyclobenzaprine HCl 10 mg TID PO 09/17/24 14:00 09/23/24 05:22 10 MG Docusate Sodium 100 mg BID PO 09/17/24 22:00 09/23/24 09:26 100 MG Nitroglycerin 0.4 mg Q5MINP PRN SL 09/17/24 12:45 Morphine Sulfate 2 mg Q30M PRN IV 09/17/24 12:45 Albuterol 2.5 mg BID NEB 09/17/24 22:00 09/23/24 06:31 2.5 MG Clonidine HCl 0.1 mg Q6HP PRN PO 09/19/24 15:00 General: Normal, Well developed, Well nourished, Normal Appearance Head/Eyes: Normal ENT: Normal Neck: Normal Lungs: Other (Patient has regained full sentences no distress noted) Cardiovascular: Normal, Other (Skin is pink warm and dry) Abdominal: Other (Patient tolerating diet no complaints of nausea or vomiting) Musculoskeletal: Normal (Patient experiencing expected postoperative pain, achiness to hips and thighs which is also expected, patient moving all extremities as requested) Extremities: Normal Skin: Normal, Other (Sherri dressing intact) Neurological: Normal Labs and Microbiology Laboratory Tests 09/14/24 14:30 Test 09/14/24 14:30 Range/Units Serum Glucose 79 74-106 mg/dL Ass/Plan Labs and/or images reviewed: Labs reviewed by me Problems(with codes): (1) Muscle spasm of back (2) Postoperative pain after spinal surgery (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 However the patient must have a safe discharge plan. Patient does appear to need skilled PT needs due to decontintiong, when seen today patient decided to refuse PT, which was also discussed with the patient. Patient was instructed to get to side of bed for meals and also up to chair with assistance for meals if she was more comfortable. Patient made aware that mobility will help facilitate healing. -Follow up appointment: with Dr Oliva scheduled prior to surgery [id number] [facility] [address] [place] [id number] -Pain: - IV pain meds post op day 1, with PO supplementation, goal is to progress weaning off IV medications and control pain with PO only. morphine (PAIN 7-10) - P.O. analgesics:Tylenol 650MG (PAIN 1-3) Lykens (PAIN 4-6) - Muscle relaxers scheduled administration. This is a beneficial medications for the incisional pain as it is mostly related to muscle spasms. Flexeril 10 mg TID - Cepacol throat lozenges as needed for sore throat -Antibiotics Operative recommendations: -Postoperative dose:-Post operative antibiotics cefazolin 1 g IV piggyback every 8 hours x 48 hours total of 6 doses -DVT PPX: -Hold all chemical DVT/ blood thinners for 14 days postoperatively -use mechanical DVT PPX such as SCD's, ambulation -Activity: -Pending PT evaluation and patients progression -Sit at side of bed for meals -Goal: Ambulate independently and safely (may use assistive devices if needed) -Medical Therapy goals: -Afebrile- Patient may develop a expected post operative fever by day 2-3, this may not be accompanied with a elevation in WBC. if fever develops: Acetaminophen for fever. Albuterol nebulizer Tx every 12 hours for 24 hours to facilitate adequate lung expansion and prevent development of atelectasis. -Euglycemic: bloods sugars under 130mmol/L for optimal healing -Normotensive: Avoid events of hypertension. This helps to keep post operative healing intact and avoids destabilization of beneficial hemostatic coagulation. -Lumbar: -If patient is comfortable encouraged the patient to lay on their side to facilitate wound healing -Dressings Take care not to disrupt the SHERRI dressing seal. If there is a break in the seal it can be trouble shot with a Tegaderm dressing. -Dressing to Hemovac drains may be changed once the drains have been removed by the provider. -Bowel management: -Colace 100mg bid -Diet: -Clear liquid diet and advance as patient tolerates within dietary limitations ( example: diabetic, Cardiac) -Incentive Spirometer: -10 x hour while awake, RN please educate and observe repeat demonstration, have IS at bedside POD #1 -X-rays: - none indicated at this time -Consults: -Physical Therapy evaluation, treatment recommendations, and discharge recommendations Call with questions Brittnee Mejia ACNP- Orthopaedic Spine Surgery nurse practitioner For Dr Cami Oliva Patient was examined, chart reviewed, labs evaluated, and diagnostic studies and findings analyzed. Case was discussed with Dr. Des Oliva who formulated the plan of care. This medical document was created using an electronic medical record system with [employer] dictation system. Although this document has been carefully reviewed, there might still be some phonetic and typographical errors. These areas are purely typographical due to imperfections of the software programs, and do not reflect any compromise in the patient's medical care. Prognosis: Good Plan discussed with Patient and Dean DING X [phone] Visit Coding Surgery Date of Service if different f: Sep 23, 2024 Billing Provider: TREE MEJIA NP Surgery Visit Codes: NOT BILLABLE TREE MEJIA NP Sep 23, 2024 11:54
[2024-09-23 13:36] LABS: Base Excess 7.7 mmol/L (-2.0-3.0)
[2024-09-24] VITALS (8 sets, daily range): BP systolic 98–121; BP diastolic 57–72; PULSE 63–111; RESP 17–20; TEMP 97.3–98.3; O2SAT 90–100
[2024-09-24] MEDS: oxyCODONE HCL 5MG TAB PO ONE (07:18)
--- NOTE | 2024-09-24 11:56 | DVHPN2 ---
Subjective The patient is seen and examined at bedside. Oxygen had been arranged in at bedside. Patient feel better. However remained weak. Reviewed: Care Plan Changes from previous H/P or p: No Changes Objective Vitals Vital Signs Date Time Temp Pulse Resp B/P (MAP) Pulse Ox O2 Delivery O2 Flow Rate FiO2 09/24/24 09:00 97.3 105 18 98/60 (73) 96 97.3 09/24/24 06:55 Nasal Cannula* 3 32 Intake/Output Intake and Output 09/24/24 07:00 Intake Total 1540 ml Balance 1540 ml Intake Oral 1540 ml # Voids 8 General Appearance: Alert, Oriented X3, Cooperative, No acute distress HEENT: Atraumatic, PERRLA, EOMI Neck: Supple Lungs: Clear to auscultation, Normal air movement Cardiovascular: Regular rate, Normal S1, Normal S2, No murmurs, Gallops, Rubs Abdomen: Normal bowel sounds, Soft, No tenderness Neuro: Cranial nerves 3-12 NL Psych/Mental Status: Mental status NL Medications Current Medications Medications Dose Ordered Sig/Mindy Route Start Time Stop Time Status Last Admin Dose Admin Ondansetron HCl 4 mg Q4HP PRN IV 09/17/24 12:45 Acetaminophen 650 mg Q6HP PRN PO 09/17/24 12:45 Acetaminophen/ Hydrocodone Bitart 1 tab Q6HP PRN PO 09/17/24 12:45 09/24/24 09:07 1 TAB Morphine Sulfate 2 mg Q4HP PRN IV 09/17/24 12:45 Cyclobenzaprine HCl 10 mg TID PO 09/17/24 14:00 09/24/24 05:48 10 MG Docusate Sodium 100 mg BID PO 09/17/24 22:00 09/24/24 09:06 100 MG Nitroglycerin 0.4 mg Q5MINP PRN SL 09/17/24 12:45 Morphine Sulfate 2 mg Q30M PRN IV 09/17/24 12:45 Albuterol 2.5 mg BID NEB 09/17/24 22:00 09/24/24 06:55 2.5 MG Clonidine HCl 0.1 mg Q6HP PRN PO 09/19/24 15:00 Laboratory Results Laboratory Tests 09/14/24 14:30 Urinalysis Test 09/15/24 12:02 Urine Color Light-yellow (Yellow) Urine Clarity Clear (Clear) Urine pH 6.0 (5.0-9.0) Urine Specific [place] 1.009 (1.001-1.035) Urine Protein Negative (Negative) Urine Ketones Negative (Negative) Urine Blood Negative /uL (Negative) Urine Nitrite Negative (Negative) Urine Bilirubin Negative (Negative) Urine Urobilinogen Normal mg/dL (Negative) Urine Leukocyte Esterase Negative /uL (Negative) Urine RBC 1 /hpf (0 - 4) Urine Microscopic WBC < 1 /HPF (0-5) Urine Squamous Epithelial Cells Few /hpf (<5) Urine Bacteria None seen /hpf (None Seen) Urine Glucose Normal mg/dL (Normal) Blood Gas Results Test 09/23/24 13:09 Arterial Blood pH 7.468 (7.350-7.450) FiO2 % 21.0 Labs and/or images reviewed: Labs reviewed by me Assessment/Plan Assessment/Plan 79-year-old female with a known history of COPD, hypertension, chronic low back pain who was brought in while spine surgery for elective procedure. 1. Hypertension controlled 2. COPD currently not in exacerbation 3. Lumbar radiculopathy status post L3-4/L4-5 spine surgery -pain meds as needed, DVT GI prophylaxis -physical therapy evaluation and treatment -discharge plan per orthopedic spine surgery. -the patient has home oxygen has been arranged. Patient is stable to discharge from medicine standpoint. Recommend the patient to go to [facility] home facility for physical therapy. The patient however adamant refused. We will let the primary team, spine surgery know about her wish. This medical document was created using an electronic medical record system with [employer] computerized dictation system. Although this document has been carefully reviewed, there may still be some phonetic and typographical errors. These areas are purely typographical due to imperfections of the software programs, and do not reflect any compromise in the patient's medical care. Plan discussed with: Patient Date of Service: Sep 24, 2024 Billing Provider: JENY RODRIGUEZ MD Common Visit Codes: 22648-ZCG/OBS DISCH DAY >30min JENY RODRIGUEZ MD Sep 24, 2024 11:56
--- NOTE | 2024-09-24 13:32 | PRN ---
Misceleneous Note Note Note Patient is cleared by the medicine team to discharge home, there is oxygen supply equipment at her bedside Jarvis dressing is clean dry intact, seal is intact, power source is functioning Patient work with physical therapy yesterday was able to ambulate in the zulu[place] per report Patient tolerating food, states pain is under control at this time however she is experiencing normal expected postoperative discomfort Call with questions Brittnee Matthews [facility] Orthopaedic Spine Surgery nurse practitioner For Dr Cami Oliva Patient was examined, chart reviewed, labs evaluated, and diagnostic studies and findings analyzed. Case was discussed with Dr. Des Oliva who formulated the plan of care. This medical document was created using an electronic medical record system with [employer] computerized dictation system. Although this document has been carefully reviewed, there might still be some phonetic and typographical errors. These areas are purely typographical due to imperfections of the software programs, and do not reflect any compromise in the patient's medical care. TREE MATTHEWS NP Sep 24, 2024 13:32
--- NOTE | 2024-09-24 13:45 | DVHDS2 ---
Discharge Summary Date of Admission Sep 17, 2024 at 12:31 Date of Discharge: Sep 24, 2024 Admitting Diagnosis Lumbar stenosis with neurogenic claudication Wounds: Posterior lumbar wound well approximated with suture, yoly dressing is intact, seal is intact, power source is functioning well Labs/Diagnostic Data: Laboratory Results Test 09/23/24 13:09 09/15/24 12:02 09/14/24 14:30 Blood Gas Specimen Type Arterial Blood Gas Sample Site Right radial Blood Gas Patient Temperature 37.0 Arterial Blood Date Drawn [id number] Arterial Blood pH 7.468 (7.350-7.450) Arterial Blood Partial Pressure CO2 45.6 mmHg (32.0-45.0) Arterial Blood Partial Pressure O2 46.7 mmHg (83.0-108.0) Arterial Blood HCO3 32.3 mmol/L (21.0-28.0) Arterial Blood Oxygen Saturation 84.1 % (94.0-98.0) Arterial Blood Base Excess 7.7 mmol/L (-2.0-3.0) Arterial Blood Oxyhemoglobin 83.5 % (94.0-98.0) Arterial Blood Carboxyhemoglobin 0.5 % (0.5-1.5) Arterial Blood Methemoglobin 0.2 % (0.0-1.5) Jcaob Test Modified Blood Gas Total Hemoglobin 11.20 g/dL (12.0-16.0) Blood Gas Modality Room air FiO2 % 21.0 Blood Gas Critical Value Read Back Yes Blood Gas Notified Whom Dr. perdue Blood Gas Notified Time [id number] Blood Gas Notified By Jose palumbo rrt Urine Color Light-yellow (Yellow) Urine Clarity Clear (Clear) Urine pH 6.0 (5.0-9.0) Urine Specific [place] 1.009 (1.001-1.035) Urine Protein Negative (Negative) Urine Ketones Negative (Negative) Urine Blood Negative /uL (Negative) Urine Nitrite Negative (Negative) Urine Bilirubin Negative (Negative) Urine Urobilinogen Normal mg/dL (Negative) Urine Leukocyte Esterase Negative /uL (Negative) Urine RBC 1 /hpf (0 - 4) Urine Microscopic WBC < 1 /HPF (0-5) Urine Squamous Epithelial Cells Few /hpf (<5) Urine Bacteria None seen /hpf (None Seen) Urine Glucose Normal mg/dL (Normal) White Blood Count 4.9 10^3/uL (4.4-10.8) Red Blood Count 4.44 10^6/uL (4.0-5.20) Hemoglobin 13.0 g/dL (12.2-16.2) Hematocrit 38.8 % (36.0-46.0) Mean Corpuscular Volume 87.2 fL (80.0-100.0) Mean Corpuscular Hemoglobin 29.2 pg (28.0-32.0) Mean Corpuscular Hemoglobin Concent 33.4 g/dL (32.0-36.0) Red Cell Distribution Width 13.9 % (11.8-14.3) Platelet Count 266 10^3/uL (140-450) Mean Platelet Volume 8.3 fL (6.9-10.8) Neutrophils (%) (Auto) 52.0 % (37.0-80.0) Lymphocytes (%) (Auto) 38.9 % (10.0-50.0) Monocytes (%) (Auto) 6.8 % (0.0-12.0) Eosinophils (%) (Auto) 1.2 % (0.0-7.0) Basophils (%) (Auto) 1.1 % (0.0-2.0) Neutrophils # (Auto) 2.5 10 ^3/uL (1.6-8.6) Lymphocytes # (Auto) 1.9 10 ^3/uL (0.4-5.4) Monocytes # (Auto) 0.3 10 ^3/uL (0-1.3) Eosinophils # (Auto) 0.1 10 ^3/uL (0-0.8) Basophils # (Auto) 0.1 10 ^3/uL (0-0.2) Nucleated Red Blood Cells 0.0 % Prothrombin Time 11.4 sec (9.3-11.8) Prothrombin Time INR 1.08 (0.9-1.15) Activated Partial Thromboplast Time 29.1 SEC (24.5-34.5) Sodium Level 140 mmol/L (136-145) Potassium Level 3.8 mmol/L (3.5-5.1) Chloride Level 105 mmol/L (98-107) Carbon Dioxide Level 28 mmol/L (20-31) Anion Gap 7 (5-15) Blood Urea Nitrogen 9 mg/dL (9-23) Creatinine 0.96 mg/dL (0.550-1.02) Glomerular Filtration Rate Calc 60 mL/min (>90) BUN/Creatinine Ratio 9.4 (10.0-20.0) Serum Glucose 79 mg/dL (74-106) Calcium Level 10.7 mg/dL (8.7-10.4) Total Bilirubin 0.5 mg/dL (0.2-1.0) Aspartate Amino Transferase (AST) 13 U/L (13-40) Alanine Aminotransferase (ALT) 9 U/L (7-40) Alkaline Phosphatase 53 U/L (46-116) Total Protein 8.0 g/dL (5.7-8.2) Albumin 5.0 g/dL (3.2-4.8) Other Laboratory Tests 09/14/24 14:30 Brief Hx & Hospital Course: Hospital course The patient arrived for a elective spine surgery with Dr. OLIVA. Surgery went as planned with no complications. After a short stay in the PACU patient was admitted to the hospital for postoperative care and pain management over the course of 3 postoperative days the patient was able to tolerate a diet, ambulate independently, the pain has been managed with oral analgesics. The surgical site is well-approximated with sutures, some residual drainage continues from drain insertion sites after removal, however it is manageable with daily wound care and dressing changes. Some improvement to preoperative symptoms of extremities, strength and motion. There is new post operative pain that is localized to the surgical site. The patient will follow-up with Dr. Oliva for wound check and suture check or staple removal. The patient may use Durham J collar /TLSO / Soft collar for comfort and while mobilizing. Patient will be discharged with yoly dressing in place, this will be removed at postop follow-up appointment which should be scheduled by postoperative day 10 Your yoly dressing may be carried in your pocket or belt clip what ever is most comfortable for you. Your yoly pump contains a small magnet be sure to keep it at least 4 inches or 10 cm away from any other medical devices at all times. As with all electrical medical equipment, failure to maintain appropriate distance may disrupt the operation of nearby medical devices. Sleeping, be sure your yoly drain is placed somewhere safe and cannot be pulled off of the table or a cabinet onto the floor during sleeping. Washing and showering, do not soak the dressing or allow the pump to get wet. You may shower with your yoly dressing. However do not allow the water to saturate the dressing. The power source must be placed in a Ziploc bag and the opening taped closed to prevent the power source from getting wet No bending lifting or twisting until cleared by your surgeon. Operations or Procedures Procedure: Lumbar 5 laminectomy with Lumbar 5 foraminotomies and facetectomies to decompress central canal and Lumbar 5 nerve roots Lumbar 4 laminectomy with Lumbar 4 foraminotomies and facetectomies to decompress central canal and Lumbar 4 nerve roots Lumbar 3 laminectomy with Lumbar 3 foraminotomies and facetectomies to decompress central canal and Lumbar 4 nerve roots Lumbar 3 to 5 posterior spinal inter transverse fusion with bone graft Lumbar 3 to 5 posterior spinal instrumentation with pedicle screws Condition at Discharge: Stable Final Diagnosis/Problems List Lumbar stenosis with neurogenic claudication Problems List: (1) Muscle spasm of back Status: Acute (2) 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 Follow Up/Referral: Keep your postoperative appointment Call [phone] if you need to change your appointment [id number] [facility] [address] [address] Medications: Medication for the back pain, and muscle spasms were sent to patient's preferred pharmacy New Medications: Cyclobenzaprine HCl (Cyclobenzaprine Hydrochlo) 10 Mg Tab 10 MG PO TID for 30 Days, #90 TAB Docusate Sodium (Docusate Sodium) 100 Mg Cap 100 MG PO BID for 14 Days, #28 CAP Hydrocodone-Acetaminophen (Hydrocodone Bitartrate/AC 10-325 mg) 1 Tab Tab 1 TAB PO Q8HPRN PRN for 10 Days, #30 TAB Continued Medications: Albuterol Sulfate (Albuterol Sulfate Hfa) 108 Mcg/Act Aer INH Amlodipine Besylate (Amlodipine Besylate) 10 Mg Tab Unknown Dose PO DAILY, TAB Baclofen (Baclofen) 10 Mg Tab 1 TAB PO DAILY Cholecalciferol (D3) 50 Mcg Cap Unknown Dose PO DAILY, CAP Hydrocodone-Acetaminophen (Hydrocodone Bitartrate/AC 10-325 mg) 1 Tab Tab Mirabegron Base (Myrbetriq) 25 Mg Tab 25 MG OR DAILY, TAB 20 Discharge Statement: "Patient was advised to return to the ER or call 911 if any headaches, dizziness, shortness of breath, chest pain, abdominal pain, bleeding, fevers, or worsening of medical condition. Patient was counseled about treatment plan, medications, possible side effects, patientverbalized understanding. All questions were answered to the best of my ability. 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
== END 2024-09-24 16:44 | disposition left against medical advice (07) | DRG 448 ==
LOC: SUR 08:43 → OVERFLOW 12:31 → TELE-WESTW 16:48
PROVIDERS: ADMIT Internal Medicine; ATTEND Internal Medicine
PROC: 01NB0ZZ Release Lumbar Nerve, Open Approach (ICD-10-PCS; 2024-09-17)
PROC: 00NY0ZZ Release Lumbar Spinal Cord, Open Approach (ICD-10-PCS; 2024-09-17)
PROC: 4A11X4G Monitoring of Peripheral Nervous Electrical Activity, Intraoperative, External Approach (ICD-10-PCS; 2024-09-17)
PROC: 0SG1071 Fusion of 2 or more Lumbar Vertebral Joints with Autologous Tissue Substitute, Posterior Approach, Posterior Column, Open Approach (ICD-10-PCS; principal; 2024-09-17 12:13)
DX: M48.062 Spinal stenosis, lumbar region with neurogenic claudication (principal); M51.16 Intervertebral disc disorders with radiculopathy, lumbar region; J44.9 Chronic obstructive pulmonary disease, unspecified; I10 Essential (primary) hypertension; G89.29 Other chronic pain; M62.838 Other muscle spasm; Z79.899 Other long term (current) drug therapy
CPT/HCPCS: 36415; 36600; 72100; 76000; 80053; 81001; 82805; 85025; 85610; 85730; 86850; 86900; 86901; 94640; 97110; 97116; 97163; 97530; G0378; J1885; J1956; J2250; J2405; J2704